=== PATIENT | female | born 1995 ===

== ENCOUNTER 2021-07-17 12:45 | Inpatient (IN) | payer OTHER ==
[~2021-07-17] VITALS: Ht 167.6 cm; Wt 3.2 kg
[2021-07-25] MEDS ORDERED: PRENATAL CAPLE1 EAC1 PO (10:18)
== END 2021-07-27 11:26 | disposition home or self-care (01) | DRG 788 ==
LOC: OB/GYN 07-25 11:49 → LDR 07-25 11:49 → SURH 07-25 12:45 → OB/GYN 07-25 19:37
PROVIDERS: ADMIT Obstetrics & Gynecology; ATTEND Obstetrics & Gynecology
PROC: 4A1HXCZ Monitoring of Products of Conception, Cardiac Rate, External Approach (ICD-10-PCS; 2021-07-25)
PROC: 10D00Z1 Extraction of Products of Conception, Low, Open Approach (ICD-10-PCS; principal; 2021-07-25 16:15)
DX: O33.8 Maternal care for disproportion of other origin (principal); Z3A.40 40 weeks gestation of pregnancy; Z37.0 Single live birth; Z20.822 Contact with and (suspected) exposure to COVID-19

== ENCOUNTER 2021-07-25 07:08 | Outpatient (CLI) | payer OTHER ==
[2021-07-25] MEDS ORDERED: PRENATAL CAPLE1 EAC1 PO (10:18)
== END 2021-07-25 12:22 | disposition still patient (30) ==
LOC: OBS/DEL 07:08
PROVIDERS: ATTEND Obstetrics & Gynecology
DX: O26.849 Uterine size-date discrepancy, unspecified trimester (principal); O41.00X0 Oligohydramnios, unspecified trimester, not applicable or unspecified; Z3A.40 40 weeks gestation of pregnancy